=== PATIENT | female | born 1995 | race Caucasian/White ===

== ENCOUNTER → 2020-04-06 | Outpatient (CLI) | payer OTHER | END | disposition home or self-care (01) | LOC: LABWHC1 09:09 | PROVIDERS: ATTEND Obstetrics & Gynecology | DX: Z20.828 Contact with and (suspected) exposure to other viral communicable diseases (principal) | CPT/HCPCS: U0003; C9803 ==

== ENCOUNTER 2020-04-26 05:45 | Inpatient (IN) | payer OTHER ==
[2020-04-26] MEDS ORDERED: TERBUTALINE 1 MG/ML VIAL SQ PRN (05:54)
[2020-04-26] MEDS ORDERED: METHYLERGONOVINE 0.2 MG/ML 1 ML AMP IM PRN (05:54)
[2020-04-26] MEDS ORDERED: CARBOPROST TROMETHAMINE 250 MCG/ML 1 ML AMP IM PRN (05:54)
[2020-04-26] MEDS ORDERED: LIDOCAINE 0.5% (PF) 5 MG/ML (50 ML SDV) SQ PRN (05:54)
[2020-04-26] MEDS ORDERED: OXYTOCIN 10 UNIT/ML 1 ML VIAL IM PRN (05:54)
[2020-04-26] MEDS ORDERED: OXYTOCIN 30 UNITS/500 ML NS 30 UNIT in SALINE 1 500ML.BAG IV SCH (06:00)
[2020-04-26] MEDS: LACTATED RINGERS 1,000 ML IV SCH ×3 (06:14→23:10)
[2020-04-26 06:25] LABS: Basophils % (A) 0 %; Eosinophils # (A) 0.1 k/uL (0-0.7); Eosinophils % (A) 1 %; HCT 41.7 % (34.0-46.0); HGB 14.7 gm/dL (11.4-16.0); Lymphocytes % (A) 20 %; MCH 31.4 pg (25.0-35.0); MCHC 35.1 g/dL (31.0-37.0); MCV 89.3 fL (80.0-100.0); Mean Platelet Volume 7.3; Monocytes # (A) 0.5 k/uL (0-1.0); Monocytes % (A) 6 %; Neutrophils % (A) 72 %; Platelet Count 265 k/uL (150-450); RBC 4.67 m/uL (3.80-5.40); RDW 13.1 % (11.5-15.5); WBC 9.7 k/uL (3.8-10.6)
--- NOTE | 2020-04-26 08:02 | P.HPOB ---
History of Present Illness H&P Date: 04/26/20 Chief Complaint: Here for induction of labor for postdates with fa vorable cervix. This is a 25-year-old white female 1 para 0 EDC 04/24/2020 40-2/7 weeks' gestation. Patient presents today for induction with favorable cervix. She has been having mild uterine contractions for the past 24 hours. Fetus is been active throughout history is significant for blood type A+, rubella status nonimmune. Gonorrhea and chlamydia cultures, group B strep cultures, urine culture, Pap smear, hepatitis B surface antigen and HIV testing all negative. One-hour Glucola 102. Social history patient has never been a smoker, she denies alcohol or drug use. She is and her is present and involved. Family history is essentially negative. ALLERGIES none known. Current medications vitamins daily, baby aspirin daily. Past medical history is essentially unremarkable. Past surgical history breast reduction in 2019, wisdom teeth extracted. On exam patient is 5 foot 4 inches, 192 pounds, blood pressure 128/83 on admission, vital signs stable and she is afebrile. The general physical exam is within normal limits. Extremities reveal no edema. Cervix is 3 cm dilated, 70% effaced, -2 station, vertex presentation. Artificial amniorrhexis reveals light meconium-stained fluid. heart rate is consistent with reactive NST. Patient is having mild uterine contractions approximately every 5 minutes apart. Impression: 40-2/7 weeks intrauterine , here for induction of labor. All signs reassuring, light meconium-stained fluid noted. Plan: oxytocin per hospital protocol. Close maternal and surveillance. Analgesic options of been reviewed. Anticipate normal spontaneous vaginal delivery. Review of Systems Constitutional: Reports as per HPI Past Medical History Past Medical History: No Reported History History of Any Multi-Drug Resistant Organisms: None Reported Additional Past Surgical History / Comment(s): Breast reduction 2018 Past Anesthesia/Blood Transfusion Reactions: No Reported Reaction Past Psychological History: Anxiety Smoking Status: Former smoker Past Alcohol Use History: None Reported Past Drug Use History: None Reported - Past Family History Mother Family Medical History: Hypertension Medications and Allergies Home Medications Medication Instructions Recorded Confirmed Type Aspirin [Adult Low Dose Aspirin EC] 81 mg PO DAILY 04/26/20 04/26/20 History Pnv,Calcium 72/Iron/Folic Acid 1 each PO DAILY 04/26/20 04/26/20 History [ Plus Tablet] Allergies Allergy/AdvReac Type Severity Reaction Status Date / Time No Known Allergies Allergy Verified 04/26/20 05:51 Exam Vital Signs Temp Pulse Resp BP Pulse Ox 04/26/20 05:51 98.1 F 101 H 18 128/83 98 Intake and Output 04/25/20 04/26/20 04/26/20 22:59 06:59 14:59 Other: # Voids 1 Weight 87.09 kg See dictation under HPI please Results Result Diagrams: 04/26/20 06:12 Assessment and Plan Assessment: 40-2/7 weeks intrauterine , here for induction of labor. Light meconium-stained fluid, all signs otherwise reassuring. Plan: Oxytocin per hospital protocol. Analgesic options have been reviewed. Close maternal and surveillance. Anticipate normal spontaneous vaginal delivery. Time with Patient: Less than 30
[2020-04-26] MEDS ORDERED: ROPIVACAINE 5MG/ML 20ML VIAL ONE (10:25)
[2020-04-26] MEDS ORDERED: fentaNYL (PF) 50 MCG/ML 5 ML AMP ONE (10:25)
[2020-04-26] MEDS ORDERED: SODIUM CHLORIDE 0.9% 100 ML BAG ONE (10:25)
[2020-04-26] MEDS ORDERED: ROPIVACAINE 100 MG, fentaNYL (PF) 200 MCG in SODIUM CHLORIDE 0.9% 76 ML EPIDURAL ONE (11:22)
[2020-04-26] MEDS ORDERED: LANOLIN CREAM 5 GM TUBE TOPICAL PRN (14:45)
[2020-04-26] MEDS ORDERED: BENZOCAINE/MENTHOL SPRAY 1 GM/SPRAY AEROSOL TOPICAL PRN (14:45)
[2020-04-26] MEDS ORDERED: diphenhydrAMINE ELIXIR 25 MG/10 ML CUP PO PRN (14:45)
[2020-04-26] MEDS ORDERED: MEASLES-MUMPS-RUBELLA VACC/PF 12,500 UNIT/0.5 ML VIAL SQ ONE (14:45)
[2020-04-26] MEDS ORDERED: HYDROCORTISONE 2.5% RECTAL CREAM 30 GM TUBE RECTAL PRN (14:45)
[2020-04-26] MEDS ORDERED: diphenhydrAMINE 50 MG CAP PO PRN (14:45)
[2020-04-26] MEDS ORDERED: diphenhydrAMINE 50 MG/ML 1 ML VIAL IVP PRN ×2 (14:45)
[2020-04-26] MEDS ORDERED: SIMETHICONE 80 MG CHEWABLE PO PRN (14:45)
[2020-04-26] MEDS ORDERED: diphenhydrAMINE 25 MG CAP PO PRN (14:45)
[2020-04-26] MEDS ORDERED: OXYTOCIN 20 UNITS/1000 ML NS 1,000 ML IV SCH (14:45)
[2020-04-26] MEDS ORDERED: ZOLPIDEM 5 MG TAB PO PRN (14:45)
[2020-04-26] MEDS ORDERED: ACETAMINOPHEN TAB 325 MG TAB PO PRN (14:45)
--- NOTE | 2020-04-26 14:45 | P.PROBDLV ---
Vaginal Delivery Note - . Vaginal Delivery Note: This is a 25-year-old female 1 para 0 EDC 04/24/2020 40-2/7 weeks' gestation. Patient presented this morning for induction for postdates with favorable cervix. is essentially unremarkable, group B strep cultures negative, blood type A positive, rubella status nonimmune. Please see dictated history and physical for details. On admission artificial amniorrhexis revealed very thin meconium-stained fluid. Oxytocin was started and titrated per hospital protocol. Patient became uncomfortable and requested epidural, this was placed without difficulty per the anesthesia staff. She progressed well through the first stage of labor was ju dged to be completely dilated and began the second stage of labor at that time at 1400 hrs. Patient pushed successfully. Perineal body was prepped and draped in the usual sterile fashion. 's head delivered occiput anterior and he restituted accordingly. There was a nuchal cord 1 that was reduced. The left or anterior shoulder was delivered from underneath the pubic symphysis at which time the oropharynx, nasopharynx, and external nares were all bulb suctioned on the perineal body. Patient was officially delivered of a liveborn male at 1430 hours. Umbilical cord was doubly clamped and ligated, he was handed to waiting nurses for evaluation where scores of 9 and 9 at one and 5 minutes respectively were given. Placenta delivered spontaneously, it was inspected and noted to be intact with trivascular cord at 1431 hours. At this time the uterus is massaged. Careful inspection of the cervix, vagina, perineum, periurethral, and perirectal areas reveals a second-degree laceration easily repaired. All sponge needle and enhancement counts are correct at the end of the procedure. Patient is requesting circumcision for her son.
[2020-04-26] MEDS: IBUPROFEN 600 MG TAB PO PRN (18:03)
[2020-04-26 18:17] VITALS: RESP 18
[2020-04-26] MEDS: SENNOSIDES-DOCUSATE SODIUM 1 EACH TAB PO SCH (23:10)
[2020-04-27] MEDS: IBUPROFEN 600 MG TAB PO PRN ×2 (01:02→12:08)
[2020-04-27 07:17] LABS: Basophils % (A) 0 %; Eosinophils # (A) 0.1 k/uL (0-0.7); Eosinophils % (A) 1 %; HCT 35.2 % (34.0-46.0); HGB 12.2 gm/dL (11.4-16.0); Lymphocytes # (A) 2.2 k/uL (1.0-4.8); Lymphocytes % (A) 16 %; MCH 31.6 pg (25.0-35.0); MCHC 34.7 g/dL (31.0-37.0); MCV 90.9 fL (80.0-100.0); Mean Platelet Volume 7.4; Monocytes # (A) 0.7 k/uL (0-1.0); Monocytes % (A) 5 %; Neutrophils # (A) 10.5 k/uL (1.3-7.7); Neutrophils % (A) 76 %; Platelet Count 238 k/uL (150-450); RBC 3.87 m/uL (3.80-5.40); RDW 13.3 % (11.5-15.5); WBC 13.8 k/uL (3.8-10.6)
--- NOTE | 2020-04-27 07:17 | P.DS ---
Providers Date of admission: 04/26/20 05:45 Expected date of discharge: 04/27/20 Attending physician: Anne Brooks Primary care physician: Stated None Hospital Course: This is a 25-year-old female 1 para 0 EDC 04/24/2020 at 40-2/7 weeks' gestation. Patient presented for induction with favorable cervix, but actually presented with early spontaneous uterine contractions. is remarkable for rubella status nonimmune, blood type A+, group B strep cultures negative. Please see my dictated history and physical for details. Artificial amniorrhexis revealed thin meconium-stained fluid. Oxytocin was started and titrated per hospital protocol. Epidural was placed per her request. She went on to deliver vaginally a liveborn male with scores of 9 and 9 at one and 5 minutes respectively. weighed 6 lbs. 11 oz. or 3045 g. Estimated blood loss recorded of 250 mL's. There was a nuchal cord 1 that was reduced. Please see my dictated delivery note for details. A small second-degree perineal laceration was easily repaired. This morning the patient is doing well. She is voiding, ambulating, passing flatus without difficulty. Vital signs are stable and she is afebrile. Fundus is firm and in the midline, symmetric and 18 week size. These are negative for edema. [place] infant has been circumcised. Patient is judged to be in very good condition for discharge home. She will follow-up with me in the office in 6 weeks. I have reminded her no intercourse, tampons or douching. She will use [id number] Advil or Aleve, or Motrin as needed for pain. She will call with any fevers shakes or chills, foul smelling or copious lochia, with the passage of large blood clots, or indeed with any questions difficulties or concerns. Assessment: Doing well day #1 Patient Condition at Discharge: Good Plan - Discharge Summary Discharge Rx Participant: No New Discharge Prescriptions: No Action Pnv,Calcium 72/Iron/Folic Acid [ Plus Tablet] 1 each PO DAILY Aspirin [Adult Low Dose Aspirin EC] 81 mg PO DAILY Discharge Medication List Aspirin [Adult Low Dose Aspirin EC] 81 mg PO DAILY 04/26/20 [History] Pnv,Calcium 72/Iron/Folic Acid [ Plus Tablet] 1 each PO DAILY 04/26/20 [History] Follow up Appointment(s)/Referral(s): Anne Brooks MD [STAFF PHYSICIAN] - 6 Weeks
[2020-04-27] MEDS: SENNOSIDES-DOCUSATE SODIUM 1 EACH TAB PO SCH (08:09)
[2020-04-27 08:15] VITALS: BP 123/80; PULSE 78; TEMP 97.5
== END 2020-04-27 15:45 | disposition home or self-care (01) | DRG 807 ==
LOC: 4FBP 05:45
PROVIDERS: ADMIT Obstetrics & Gynecology; ATTEND Obstetrics & Gynecology
PROC: 10E0XZZ Delivery of Products of Conception, External Approach (ICD-10-PCS; principal; 2020-04-26)
PROC: 0KQM0ZZ Repair Perineum Muscle, Open Approach (ICD-10-PCS; principal; 2020-04-26)
PROC: 3E0R3BZ Introduction of Anesthetic Agent into Spinal Canal, Percutaneous Approach (ICD-10-PCS; principal; 2020-04-26)
PROC: 10907ZC Drainage of Amniotic Fluid, Therapeutic from Products of Conception, Via Natural or Artificial Opening (ICD-10-PCS; principal; 2020-04-26)
PROC: 3E033VJ Introduction of Other Hormone into Peripheral Vein, Percutaneous Approach (ICD-10-PCS; principal; 2020-04-26)
PROC: 00HU33Z Insertion of Infusion Device into Spinal Canal, Percutaneous Approach (ICD-10-PCS; principal; 2020-04-26)
DX: O48.0 Post-term pregnancy (principal); Z37.0 Single live birth; O69.81X0 Labor and delivery complicated by cord around neck, without compression, not applicable or unspecified; O77.0 Labor and delivery complicated by meconium in amniotic fluid; O70.1 Second degree perineal laceration during delivery; Z3A.40 40 weeks gestation of pregnancy; Z79.82 Long term (current) use of aspirin; Z87.891 Personal history of nicotine dependence; Z86.59 Personal history of other mental and behavioral disorders; Z82.49 Family history of ischemic heart disease and other diseases of the circulatory system
CPT/HCPCS: 85025; 86850; 86900; 86901; 90471; 90707